=== PATIENT | female | born 1930 | race Caucasian/White ===

== ENCOUNTER 2017-10-17 09:05 | Day surgery (SDC) | payer MEDICARE, BC ==
[2017-10-16 12:40] VITALS: BMI 26.6
[~2017-10-17 09:05] MED LIST: Cyclopentolate 1% Opth Drop 2 ML BOT FS SCH; Fluorouracil 100 MG, Enoxaparin Sodium 25 MG, EPINEPHrine 0.3 MG in Ophthalmic Irrigati... IVPB SCH; Phenylephrine HCl 2.5% Ophth Soln 5 ML BOT FS SCH
[2017-10-17] MEDS ORDERED: Cyclopentolate 1% Opth Drop 2 ML BOT ONE (09:48)
[2017-10-17] MEDS ORDERED: Phenylephrine HCl 2.5% Ophth Soln 5 ML BOT ONE (09:49)
[2017-10-17] MEDS ORDERED: Fentanyl 100 MCG/2 ML VIAL ONE (09:59)
[2017-10-17] MEDS ORDERED: Midazolam HCl 2 mg/2 ml Vial ONE (09:59)
[2017-10-17] MEDS ORDERED: Diprivan 20 ML ONE (09:59)
[2017-10-17] MEDS ORDERED: Lidocaine 2% PF 5 ML VIAL ONE (09:59)
--- NOTE | 2017-10-17 11:28 | OP ---
DATE OF PROCEDURE: 10/17/2017 PREOPERATIVE DIAGNOSIS: Macular hole, right eye. POSTOPERATIVE DIAGNOSIS: Macular hole, right eye. PROCEDURE: Pars plana vitrectomy, internal limiting membrane peel, right eye. SURGEON: Philippe Harp M.D. ANESTHESIA: Local with monitored anesthesia care. PROCEDURE IN DETAIL: The patient was identified in the preoperative holding area. Appropriate infor med consent for the planned surgical procedure on the right eye had been obtained. The patient was t ransported to the operative suite where appropriate cardiopulmonary monitoring was established. Loca l anesthesia was obtained using retrobulbar and modified Van Lint lid block using 50/50 mixture of 4% lidocaine and 0.75% bupivacaine. The patient was prepped and draped in the usual sterile manner for ophthalmic surgery on the right eye. Lid speculum was placed in the right eye. The 25-gauge trocar s were placed in conjunctiva and sclera supratemporally, inferotemporally, and supranasally. Infusio n line was placed inferotemporally. Light pipe and vitreous cutter were inserted into the eye. Core of vitrectomy was performed. Indocyanine green dye was infused onto the posterior pole x2, identify ing the epiretinal membranes and the internal limiting membrane. These were elevated using membrane scraper and peeled across the macula using end-gripping forceps. Indirect ophthalmoscopy was used to examine the retina 360 degrees. No holes, breaks or tears were identified. Prophylactic laser was placed behind the sclerotomy sites. Complete air fluid exchange was performed with 10 minutes being allowed for fluid to drain posteriorly. A 28% sulfur hexafluoride gas was infused into the eye. Tro cars were removed and eye was noted to retain pressure well. Retrobulbar Kenalog and subconjunctival Ancef were placed. Atropine and antibiotic ointment were placed, and the eye was patched and shield ed. The patient was taken the postoperative recovery unit in good condition having suffered no immed iate perioperative complications. DISCHARGE INSTRUCTIONS: The patient was instructed to keep patch and shield on, avoid lifting and be nding, and follow up in the morning with Dr. Harp.
[2017-10-17] MEDS ORDERED: Propofol 200 MG/20 ML VIAL ONE (15:26)
[2017-10-17] MEDS ORDERED: Lidocaine 1% PF 5 ML VIAL ONE (15:26)
== END 2017-10-17 12:15 | disposition home or self-care (01) ==
LOC: SDC 09:05
PROVIDERS: ATTEND Ophthalmology Retina Specialist
PROC: 08T43ZZ Resection of Right Vitreous, Percutaneous Approach (ICD-10-PCS; principal; 2017-10-17)
PROC: 08NE3ZZ Release Right Retina, Percutaneous Approach (ICD-10-PCS; 2017-10-17)
DX: H35.341 Macular cyst, hole, or pseudohole, right eye (principal); I10 Essential (primary) hypertension; E78.5 Hyperlipidemia, unspecified; I73.9 Peripheral vascular disease, unspecified; J45.909 Unspecified asthma, uncomplicated; E03.9 Hypothyroidism, unspecified; Z79.02 Long term (current) use of antithrombotics/antiplatelets; Z79.82 Long term (current) use of aspirin; Z79.899 Other long term (current) drug therapy; Z88.5 Allergy status to narcotic agent; Z95.818 Presence of other cardiac implants and grafts; Z90.710 Acquired absence of both cervix and uterus; Z90.89 Acquired absence of other organs; Z98.890 Other specified postprocedural states; Z87.891 Personal history of nicotine dependence; Z85.43 Personal history of malignant neoplasm of ovary
CPT/HCPCS: 67025; J0171; J1650; J2001; J2250; J2704; J3010; J9190

== ENCOUNTER 2017-11-28 06:16 | Day surgery (SDC) | payer MEDICARE, BC ==
[2017-11-27 09:20] VITALS: BMI 29.2
[~2017-11-28 06:16] MED LIST changes: +Fluorouracil 100 MG, Enoxaparin Sodium 25 MG in Ophthalmic Irrigation Solution 500 ML IVPB SCH; -Fluorouracil 100 MG, Enoxaparin Sodium 25 MG, EPINEPHrine 0.3 MG in Ophthalmic Irrigati... IVPB SCH; +Phenylephrine 2.5% Ophth Soln 5 ML BOT FS SCH; -Phenylephrine HCl 2.5% Ophth Soln 5 ML BOT FS SCH
[2017-11-28] MEDS ORDERED: Phenylephrine 2.5% Ophth Soln 5 ML BOT ONE (06:36)
[2017-11-28] MEDS ORDERED: Cyclopentolate 1% Opth Drop 2 ML BOT ONE (06:36)
[2017-11-28] MEDS ORDERED: Midazolam HCl 2 mg/2 ml Vial ONE (08:03)
[2017-11-28] MEDS ORDERED: Diprivan 20 ML ONE (08:03)
[2017-11-28] MEDS ORDERED: Fentanyl 100 MCG/2 ML VIAL ONE (08:03)
--- NOTE | 2017-11-28 12:18 | OP ---
DATE OF SURGERY: 11/28/2017 PREOPERATIVE DIAGNOSIS: Macular hole, right eye. POSTOPERATIVE DIAGNOSIS: Macular hole, right eye. PROCEDURE: Pars plana vitrectomy, internal limiting membrane peel, right eye. SURGEON: Philippe Harp M.D. ANESTHESIA: Local with monitored anesthesia care. COMPLICATIONS: None. PROCEDURE IN DETAIL: The patient was identified in the preoperative holding area. Appropriate infor med consent for the planned surgical procedure on the right eye had been obtained. The patient was t ransported to the operative suite where appropriate cardiopulmonary monitoring was established. Loca l anesthesia was obtained using retrobulbar and modified Van Lint lid block using 50/50 mixture of 4% lidocaine and 0.75% bupivacaine. The patient was prepped and draped in the usual sterile manner for ophthalmic surgery on the right eye. Lid speculum was placed in the right eye. The 25-gauge trocar s were placed through the conjunctiva and sclera supratemporally, inferotemporally, and supranasally. Infusion line was placed inferotemporally. Light pipe and vitreous cutter were inserted into the e ye. Core of vitrectomy was performed. Indocyanine green dye was infused onto the posterior pole x1, identifying the epiretinal membrane temporal to the fovea. This was peeled the internal limiting me mbrane was peeled simultaneously. No further traction was noted on the macular hole. Complete air f luid exchange was performed with 10 minutes being allowed for fluid to drain posteriorly. A 15% perf luoropropane gas was infused into the eye. Trocars were removed and the eye was noted to retain pres sure well. Retrobulbar Kenalog and subconjunctival Ancef were placed. Atropine and antibiotic ointm ent were placed, and the eye was patched and shielded. The patient was taken to the postoperative re covery unit in good condition having suffered no immediate perioperative complications. Patient was instructed to keep patch and shield on, avoid lifting and bending, and follow up in the morning with Dr. Harp.
== END 2017-11-28 09:40 | disposition home or self-care (01) ==
LOC: SDC 06:16
PROVIDERS: ATTEND Ophthalmology Retina Specialist
PROC: 08T43ZZ Resection of Right Vitreous, Percutaneous Approach (ICD-10-PCS; principal; 2017-11-28)
PROC: 08NE3ZZ Release Right Retina, Percutaneous Approach (ICD-10-PCS; 2017-11-28)
PROC: 3E0C3GC Introduction of Other Therapeutic Substance into Eye, Percutaneous Approach (ICD-10-PCS; 2017-11-28)
DX: H35.341 Macular cyst, hole, or pseudohole, right eye (principal); I10 Essential (primary) hypertension; E78.5 Hyperlipidemia, unspecified; E03.9 Hypothyroidism, unspecified; I73.9 Peripheral vascular disease, unspecified; Z79.82 Long term (current) use of aspirin; Z79.02 Long term (current) use of antithrombotics/antiplatelets; Z79.899 Other long term (current) drug therapy; Z88.5 Allergy status to narcotic agent; Z95.828 Presence of other vascular implants and grafts; Z90.89 Acquired absence of other organs; Z90.710 Acquired absence of both cervix and uterus; Z98.890 Other specified postprocedural states; Z87.891 Personal history of nicotine dependence; Z85.43 Personal history of malignant neoplasm of ovary
CPT/HCPCS: 67025; J1650; J2250; J2704; J3010; J9190